=== PATIENT | female | born 1985 | race Caucasian/White ===

== ENCOUNTER 2017-04-04 01:12 | Emergency (ER) | payer BC | END 2017-04-04 02:44 | disposition home or self-care (01) | LOC: ERS 01:12 | DX: J20.9 Acute bronchitis, unspecified (principal); G43.909 Migraine, unspecified, not intractable, without status migrainosus | CPT/HCPCS: 99283 ==

== ENCOUNTER 2017-05-10 18:46 | Emergency (ER) | payer BC ==
[2017-05-10] MEDS ORDERED: diphenhydrAMINE 12.5 MG/5 ML UDCUP ONE ×2 (20:55→20:56)
[2017-05-10] MEDS ORDERED: Ketorolac Tromethamine 30 MG/ML VIAL ONE (20:55)
[2017-05-10] MEDS ORDERED: Metoclopramide HCl 10 MG/2 ML VIAL ONE (20:55)
[2017-05-10] MEDS ORDERED: diphenhydrAMINE 50 MG/ML VIAL ONE (20:58)
[2017-05-10] MEDS ORDERED: Dexamethasone 4 MG TAB ONE (20:59)
== END 2017-05-10 23:24 | disposition home or self-care (01) ==
LOC: ERS 18:46
DX: G43.909 Migraine, unspecified, not intractable, without status migrainosus (principal)
CPT/HCPCS: 96361; 96374; 96375; J1200; J1885; J2765; J8540

== ENCOUNTER 2018-01-24 14:53 | Emergency (ER) | payer BC ==
[2018-01-24] MEDS ORDERED: Metoclopramide HCl 10 MG/2 ML VIAL ONE (16:57)
[2018-01-24] MEDS ORDERED: diphenhydrAMINE 25 MG CAP ONE (16:57)
[2018-01-24] MEDS ORDERED: Ketorolac Tromethamine 30 MG/ML VIAL ONE (16:57)
== END 2018-01-24 18:03 | disposition home or self-care (01) ==
LOC: ERS 14:53
DX: G43.909 Migraine, unspecified, not intractable, without status migrainosus (principal); F32.9 Major depressive disorder, single episode, unspecified; Z79.899 Other long term (current) drug therapy
CPT/HCPCS: 96365; 96375; J1885; J2765

== ENCOUNTER 2018-04-27 00:26 | Emergency (ER) | payer BC ==
[2018-04-27 00:52] LABS: #Basophils 0.1 thou/uL (0.0-0.2); #Eosinphils 0.1 thou/uL (0.0-0.7); #Lymphocytes 2.3 thou/uL (1.20-3.40); #Monocytes 0.4 thou/uL (0.11-0.59); #Neutrophils 4.5 thou/uL (1.40-6.50); %Basophils 1.1 % (0.0-1.0); %Eosinophils 0.8 % (0.0-10.0); %Lymphocytes 31.3 % (21.0-51.0); %Monocytes 5.9 % (0.0-10.0); %Neutrophils 60.8 % (42.0-75.0); Hemoglobin 12.1 g/dL (12.0-16.0); Mean Corpuscular HGB CONC 32.2 g/dL (32.0-36.0); Mean Corpuscular Hemoglobin 28.8 pg (27.0-31.0); Mean Corpuscular Volume 89.4 fL (78.0-98.0); Mean Platelet Volume 9.6 fL (7.4-10.4); Platelet Count 261 thou/uL (130-400); RBC Distribution Width 11.9 % (11.5-14.5); Red Blood Cell (RBC) Count 4.21 mill/uL (4.20-5.40); White Blood Cell (WBC) Count 7.3 thou/uL (4.8-10.8)
[2018-04-27 01:11] LABS: ALT (SGPT) 16 U/L (8-55); AST (SGOT) 21 U/L (5-34); Alkaline Phosphatase 68 U/L (40-150); Anion Gap 8 mmol/L (10-20); BUN (Urea Nitrogen) 17 mg/dL (7.0-18.7); Bilirubin, Total Less than 0.2 mg/dL (0.2-1.2); Calc. Creatinine Clearance 0 mL/min (70-130); Calcium 9.3 mg/dL (7.8-10.44); Carbon Dioxide 28 mmol/L (22-29); Chloride 107 mmol/L (98-107); Estimated GFR-MDRD 84; Globulin 3.1 g/dL (2.4-3.5); Glucose 85 mg/dL (70-105); Potassium 3.8 mmol/L (3.5-5.1); Protein, Total 7.1 g/dL (6.0-8.3); Sodium 139 mmol/L (136-145)
--- NOTE | 2018-04-27 09:51 | CT ---
PRELIMINARY REPORT/[facility]/EMERGENTY AFTER-HOURS PROCEDURE CT Head Without Contrast EXAM DATE/TIME: 04/27/2018 2:28 AM CLINICAL HISTORY: 32 years old, female; Signs and symptoms; Numbness / parasthesia; with a pmh of prince danlos syndrome and osteogenesis imperfecta who presents to the ed after acute o nset of a tingling sensation on the right side of her face. States that as the day progressed, she de veloped a tingling sensation in her right arm and then later in her left arm. She also developed a mint flavor in her month. Her symptoms have been constant and are still present. She denies any skin changes/rashes, fevers, chills, vision changes, weakness, allergies. She takes no me dications, denies drug/alcohol/nicotine use. Denies any history of paresthesias TECHNIQUE: Imaging protocol: Axial computed tomography images of the head/brain without contrast. COMPARISON: No relevant prior studies available. FINDINGS: Brain: Prior left frontal cranioplasty with underlying tubular CSF space possibly from prior drain. N o hemorrhage. No mass effect. No evidence of acute ischemic infarct. No extra-axial fluid collection. Ventricles: Normal. No ventriculomegaly. Bones/joints: No acute fracture. Sinuses: Visualized sinuses are unremarkable. No acute sinusitis. Mastoid air cells: Visualized mastoid air cells are unremarkable. No mastoid effusion. Soft tissues: Unremarkable. IMPRESSION: No acute intracranial abnormality. Thank you for allowing us to participate in the care of your patient. Dictated and Authenticated by: Roya Gallegos MD 04/27/2018 3:02 AM Central Time ([place] & [place]) FINAL REPORT EMERGENCY AFTER HOURS CT BRAIN: Date: 04/27/18 FINDINGS/IMPRESSION: I agree with the preliminary report provided by [facility]. No definite acute intracranial abnormality is evident. Encephalomalacia is seen involving the left fr ontal lobe. Postsurgical and post-traumatic change is again seen involving the left frontal skull. No midline shift is present. POS: [facility]KO
== END 2018-04-27 03:20 | disposition home or self-care (01) ==
LOC: ERS 00:26
DX: R20.2 Paresthesia of skin (principal); G43.909 Migraine, unspecified, not intractable, without status migrainosus; F32.9 Major depressive disorder, single episode, unspecified; Z79.899 Other long term (current) drug therapy
CPT/HCPCS: 36415; 70450; 80053; 85025

== ENCOUNTER 2024-02-05 12:48 | Emergency (ER) | payer BC, SELFPAY ==
[2024-02-05] MEDS ORDERED: Acetaminophen 500 MG TAB ONE (14:07)
[2024-02-05] MEDS ORDERED: diphenhydrAMINE 50 MG/ML VIAL ONE (14:09)
[2024-02-05] MEDS ORDERED: Ketorolac Tromethamine 30 MG (1 mL) VIAL ONE (14:10)
[2024-02-05] MEDS ORDERED: Metoclopramide HCl 10 MG (2 mL) VIAL ONE (14:10)
[2024-02-05] MEDS ORDERED: Dexamethasone 10 MG/ML VIAL ONE (16:09)
== END 2024-02-05 16:25 | disposition home or self-care (01) ==
LOC: ERS 12:48
DX: G43.909 Migraine, unspecified, not intractable, without status migrainosus (principal)
CPT/HCPCS: 96374; 96375; J1100; J1200; J1885; J2765